=== PATIENT | female | born 1970 | race Caucasian/White ===

== ENCOUNTER 2018-09-13 15:27 | Outpatient (REF) | payer BC, SELFPAY ==
[2018-09-14 13:07] LABS: Chlamydia Result Negative; GC Result Negative; Specimen Description URINE
== END 2018-09-13 15:47 ==
LOC: LBN 15:27
PROVIDERS: PCP Nurse Practitioner Gerontology; Visit Provider Nurse Practitioner Family
DX: Z30.431 Encounter for routine checking of intrauterine contraceptive device (principal); Z11.3 Encounter for screening for infections with a predominantly sexual mode of transmission
CPT/HCPCS: 87491; 87591

== ENCOUNTER 2019-09-22 09:38 | Outpatient (CLI) | payer BC, SELFPAY ==
--- NOTE | 2019-09-22 08:30 | DI.RAD_ITS ---
EXAM: XR KNEE LT 4V AP,LAT,THOMAS,PAT CLINICAL HISTORY: left knee pain, fall from mtb. TECHNIQUE: 2D digital imaging was performed. COMPARISON: CR KNEES BILAT MERCHANT VIEW from 09/13/2008 CR LEFT KNEE LIMITED 1 OR 2 VIEWS from 09/13/2008 CR LEFT KNEE 3 VIEW COMPLETE from 08/03/2011 FINDINGS: Moderate degenerative changes are seen in the left knee with joint space narrowing and marginal osteo phytes. There are findings of a prior ACL repair. No acute fracture or dislocation. A small joint effusion is present. The soft tissues are unremarkable. IMPRESSION: Degenerative and postsurgical changes of the left knee. DATA REPOSITORY: RADIATION DOSE DELIVERED:
== END 2019-09-22 09:58 ==
PROVIDERS: PCP Nurse Practitioner; Referring Provider Nurse Practitioner; Visit Provider Physician Assistant Surgical
DX: M17.12 Unilateral primary osteoarthritis, left knee (principal); M25.762 Osteophyte, left knee
CPT/HCPCS: 73564

== ENCOUNTER 2019-10-27 16:01 | Outpatient (REF) | payer BC, SELFPAY ==
--- NOTE | 2019-10-27 15:50 | PAPFT_PTH ---
PATIENT: Lizabeth Cote LOC: [facility] U#:[id number] AGE/SX: 49/F ROOM: RE10/27/[address]: ELVIN Ovalles : 1970 BED: DIS: 10/27/2019 SPEC #: [id number] RECD: 10/27/19 18:13 STATUS: ANNA REQ #: [id number] CATHY: 10/27/19 15:[address]: Janet Barlow DEPT: [facility] Cytology RECD BY: So Stoddard ENTERED: 10/27/19 18:14 SP TYPE: PAPFT OTHR DR: Debra Carreon, PhD DATA SCIENCES DIRECTOR Tissues: 1 - CX/ENDOCX FOR PAP SMEARS Procedures: PAP THIN PREP/UVM Screening HPV DNA PROBE Comments: [id number]
== END 2019-10-27 16:21 ==
LOC: LBN 16:01
PROVIDERS: PCP Nurse Practitioner; Visit Provider Nurse Practitioner Family
DX: Z12.4 Encounter for screening for malignant neoplasm of cervix (principal); Z11.51 Encounter for screening for human papillomavirus (HPV)
CPT/HCPCS: 88142; 87624

== ENCOUNTER 2019-11-29 02:38 | Outpatient (CLI) | payer BC, SELFPAY ==
--- NOTE | 2019-11-29 17:00 | DI.MAMMO_ITS ---
EXAM: MAMMO SCREENING CLINICAL HISTORY: screening TECHNIQUE: Mammograms were interpreted according to the usual protocol including computer analysis w [employer] CAD system, tomosynthesis and C-view imaging. COMPARISON: 2012 through 2018 FINDINGS: The breasts are composed of heterogeneously dense fibroglandular densities, Breast Density category C . No suspicious masses or suspicious microcalcifications are seen. No skin thickening or abnormal axillary lymph nodes are seen. There has been no significant change from prior exams. IMPRESSION: BI-RADS Category 1, Negative mammogram. Yearly screening mammography is recommended. Breast Density Category C, heterogeneously Dense. The mammogram demonstrates the patient's breast tissue is dense. Dense breast tissue is very common a nd is not abnormal but dense breast tissue can make it harder to find cancer on a mammogram. Also, de nse breast tissue may increase breast cancer risk. This information about the result of the mammogram report was provided to the patient to raise their awareness. Use this report when you speak with the patient about their risks for breast cancer, which includes their family history. At that time, you may recommend additional screening tests (Ultrasound or MRI) as they might be useful based on their r isk. A negative radiographic report should not delay biopsy if a dominant or clinically suspicious mass is present. Up to ten percent of cancers are not identified on mammography. A negative report may reinforce clinical impression. Adenosis and dense breasts may obscure an underlying neoplasm. False positive reports average 6 to 10%.
== END 2019-11-29 02:58 ==
PROVIDERS: PCP Nurse Practitioner; Visit Provider Nurse Practitioner Family
DX: Z12.31 Encounter for screening mammogram for malignant neoplasm of breast (principal)
CPT/HCPCS: 77063; 77067

== ENCOUNTER 2021-01-14 08:34 | Outpatient (CLI) | payer BC, SELFPAY ==
--- NOTE | 2021-01-14 | DI.MAMMO_ITS ---
Exam(s) MAMMO SCREENING EXAM: MAMMO SCREENING CLINICAL HISTORY: SCREENING, Z12.39 TECHNIQUE: Mammograms were interpreted according to the usual protocol including computer analysis w [employer] CAD system, tomosynthesis and C-view imaging. COMPARISON: 2012 through 2019 FINDINGS: The breasts are composed of heterogeneously dense fibroglandular densities, Breast Density category C . No suspicious masses or suspicious microcalcifications are seen. No skin thickening or abnormal axillary lymph nodes are seen. There has been no significant change from prior exams. IMPRESSION: BI-RADS Category 1, Negative mammogram. Yearly screening mammography is recommended. Breast Density Category C, heterogeneously Dense. The mammogram demonstrates the patient's breast tissue is dense. Dense breast tissue is very common a nd is not abnormal but dense breast tissue can make it harder to find cancer on a mammogram. Also, de nse breast tissue may increase breast cancer risk. This information about the result of the mammogram report was provided to the patient to raise their awareness. Use this report when you speak with the patient about their risks for breast cancer, which includes their family history. At that time, you may recommend additional screening tests (Ultrasound or MRI) as they might be useful based on their r isk. A negative radiographic report should not delay biopsy if a dominant or clinically suspicious mass is present. Up to ten percent of cancers are not identified on mammography. A negative report may reinforce clinical impression. Adenosis and dense breasts may obscure an underlying neoplasm. False positive reports average 6 to 10%.
== END 2021-01-14 08:54 ==
PROVIDERS: PCP Nurse Practitioner; Visit Provider Nurse Practitioner Family
DX: Z12.31 Encounter for screening mammogram for malignant neoplasm of breast (principal)
CPT/HCPCS: 77063; 77067

== ENCOUNTER 2021-02-06 02:13 | Outpatient (CLI) | payer BC, SELFPAY ==
--- NOTE | 2021-02-06 09:00 | DI.RAD_ITS ---
Exam(s) XR ANKLE LT COMPLETE EXAM: XR ANKLE LT COMPLETE CLINICAL HISTORY: ACUTE ANKLE PAIN, ROLLED FOOT THIS SUMMER, M25.579. TECHNIQUE: 2D digital imaging was performed. COMPARISON: No exams were available for comparison FINDINGS: No evidence of fracture or widening of the mortise. Talar dome appears unremarkable. There appears to pes planus. Also inferior calcaneal spur measuring 3 millimeters. IMPRESSION: DATA REPOSITORY: RADIATION DOSE DELIVERED:
== END 2021-02-06 02:33 ==
PROVIDERS: PCP Nurse Practitioner; Visit Provider Nurse Practitioner
DX: M25.579 Pain in unspecified ankle and joints of unspecified foot (principal); M77.32 Calcaneal spur, left foot
CPT/HCPCS: 73610

== ENCOUNTER 2021-03-04 03:28 | Outpatient (CLI) | payer BC, SELFPAY ==
[2021-03-04 09:16] LABS: Hemoglobin A1C 5.1 % (<5.7)
[2021-03-04 10:00] LABS: Calculated LDL 93 mg/dL (<100); Cholesterol 190 mg/dL (<200); HDL Cholesterol 86 mg/dL (40-60); Triglyceride 58 mg/dL (<150)
== END 2021-03-04 03:29 | disposition home or self-care (01) ==
PROVIDERS: PCP Nurse Practitioner; Visit Provider Nurse Practitioner
DX: Z13.1 Encounter for screening for diabetes mellitus (principal); Z13.6 Encounter for screening for cardiovascular disorders
CPT/HCPCS: 36415; 80061; 83036

== ENCOUNTER 2021-11-12 14:49 | Observation (INO) | payer BC, SELFPAY ==
[2021-11-12] VITALS (14 sets, daily range): BP systolic 95–113; BP diastolic 46–69; PULSE 53–79; RESP 14–18; TEMP 35.8–37; TEMPC 36.6; O2SAT 95–100; BMI 23.1
--- NOTE | 2021-11-12 15:15 | DI.CT_ITS ---
Exam(s) CT ABDOMEN PELVIS W EXAM: CT ABDOMEN PELVIS W CLINICAL HISTORY: RLQ pain, cramps. TECHNIQUE: Imaging Protocol: Axial computed tomography images with coronal and sagittal reformatted images were created and reviewed CONTRAST MATERIAL: Intravenous: Omnipaque 100cc Oral: None COMPARISON: No exams were available for comparison FINDINGS: VISUALIZED LUNG BASES: No nodules nor pleural effusions evident. ABDOMEN: There is no ascites. LIVER: There are no focal hepatic lesions evident . GALLBLADDER/BILIARY: No obvious gallbladder pathology. CBD is not dilated. PANCREAS: No evidence of pancreatic mass nor dilatation of the pancreatic duct. SPLEEN: Spleen is not enlarged. No obvious intrasplenic lesions. Splenic and portal veins are paten t. ADRENALS: There are no significant adrenal masses. KIDNEYS:No focal renal masses. No cysts. No calculi. No hydronephrosis. There is a me entering pa tent 5-6 millimeter diameter vein which drains into the left renal hilum and drains dilated left para uterine veins, consistent with pelvic congestion syndrome. The left renal vein is pre aortic with no retroaortic component and there is no thrombosis of the left renal vein.. ABDOMINAL AORTA: Not enlarged. Not atherosclerotic. Aortoiliac segments are patent. LYMPH NODES:There is no retroperitoneal nor paraaortic adenopathy. ABDOMINAL WALL: No evidence of significant anterior abdominal wall nor inguinal hernia. GI: There is no evidence of bowel obstruction, free air, nor abscess. PELVIS: GI: There is a 5 millimeter calcification in the did tendon aspect of the cecum. The appendix is see n on the sagittal images as retrocecal and thickened to diameter of 13 millimeters and with wall thic kness 3 millimeters. Mild periappendiceal streaking noted. Consistent with appendicitis LYMPH NODES: There is no intrapelvic nor inguinal adenopathy. REPRODUCTIVE: IUD in satisfactory position in the anteverted uterus. No abnormal adnexal masses. Pr ominent left parauterine veins noted which drain into prominent gonadal vein on the left side. There is small amount of fluid in the cul-de-sac. URINARY BLADDER: Unremarkable OSSEOUS: No significant osseous lesions. No fractures. IMPRESSION: 1. The main acute finding is acute retrocecal appendicitis. No evidence of rupture at this time. No free air. There is a small amount of fluid in the [id number]-ew-xre-dependent aspect of the pelvis. 2. There is an IUD in satisfactory position in the endometrial canal. The uterus is anteverted. The re are no abnormal adnexal masses. 3. Enlarged left gonadal vein which drains slightly prominent left para ovarian-left parauterine vein s, consistent with element of pelvic congestion. Called by myself to ER physician RADIATION DOSE DELIVERED: 674.29mGy.cm Total DLP DATA REPOSITORY: All CT scans at this facility are submitted to the National Radiology Data Registry (NRDR) Dose Index Registry (DIR) with the [employer] (ACR). RADIATION OPTIMIZATION: All CT scans at this facility use at least one of these dose optimization te chniques: automated exposure control; mA and/or kV adjustment per patient size (includes targeted exa ms where dose is matched to clinical indication); or iterative reconstruction.
--- NOTE | 2021-11-12 15:19 | ED.GENADUL_ITS ---
Discharge Plan Disposition Patient Disposition: [facility] INPATIENT Condition: Improving Discharge Details Chief Complaint: Abd Prob Clinical Impression: Acute appendicitis Primary Care Provider: Debra Carreon ED Provider: Elie Gomez Home Meds and New Rx's Prescriptions: No Action levonorgestrel 19.5 mcg/24 hrs (5 yrs) 52 mg intrauterine device 1 device IY ONCE ascorbate calcium (vitamin C) 500 mg tablet 500 mg PO DAILY cholecalciferol (vitamin D3) 50 mcg (2,000 unit) capsule 50 mcg PO DAILY naproxen 500 mg tablet 500 mg PO BID Qty: 30 0RF Probiotic 1 EACH capsule 1 ea PO DAILY Medical Decision Making 51-year-old female with day 3 of the gradual onset of poor appetite, nausea, loose stool and the development of right lower quadrant pain. She has been chilled and nauseated. She arrives afebrile with blood pressure 113/56. Her exam does reveal tenderness in the abdomen, primarily right lower quadrant with mild rebound present. Differential diagnosis would include appendicitis. Patient IV access established, given fluid bolus and acetaminophen. Referred for laboratory testing and CT imaging. Patient has a white count of nearly 12. There is left shift present. She does have a slightly elevated bilirubin but LFTs are unremarkable. CT reveals acute retrocecal appendicitis. Please see the formal report. Patient seen in consultation by Dr. Barrera, antibiotics initiated and the patient will be admitted for operative management. HPI General Mode of arrival: ambulatory . Date/Time Provider Initiated Documentation: 11/12/21 14:58 . Limitations to Documentation: no limitations . Information obtained by: patient . History of Present Illness 51 year old F presents to the emergency department with the chief complaint of Abdominal cramps and right lower quadrant pain x2 days, described as moderate, Quality is described as dull and constant, and is localized to the abdomen and right. Patient reports radiation to back. Patient started experiencing this day(s) and it has been constant. Rest improves symptom(s), Movement worsens symptoms . Patient notes nausea/vomiting and other (Nausea, loose stool, no blood present. No emesis. Chills but no fever.). Related Data Home Medications Medication Instructions Recorded Confirmed Lactobacillus acidophilus 10 1 ea PO DAILY 05/18/16 11/12/21 billion cell capsule (Probiotic) levonorgestrel 20.1 mcg/24 hrs (6 1 device intrauterine ONCE 09/13/18 11/12/21 yrs) 52 mg intrauterine device naproxen 500 mg tablet 500 mg PO BID #30 tabs 12/06/18 11/12/21 ascorbate calcium (vitamin C) 500 500 mg PO DAILY 12/24/20 11/12/21 mg tablet cholecalciferol (vitamin D3) 50 50 mcg PO DAILY 12/24/20 11/12/21 mcg (2,000 unit) capsule Previous Rx's Medication Instructions Recorded naproxen 500 mg tablet 500 mg PO BID #30 tabs 12/06/18 Allergies Allergy/AdvReac Type Severity Reaction Status Date / Time Sulfa (Sulfonamide Allergy Severe ORAL Verified 11/12/21 14:58 Antibiotics) BLISTERS AND SORES General Stated Complaint: Abd Prob DANDRE: 3 Review of Systems Narrative: 8 systems were reviewed and otherwise negative. No URI symptoms, negative COVID at home. Immunized. PFSH All Active Problems (Updated 11/12/21 @ 18:30 by Elie Gomez MD) Acute appendicitis (Acute) IUD surveillance (Acute 02/18/15) Surgical History Repair, ACL (~2012) left Family History Mother No problems noted. 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[employer] Pets and animals: Yes Pets and animals: dog(s) Sexually active: Yes Do you think of yourself as: straight/heterosexual Current gender identity: female What is your relationship status?: How often do you talk on the phone with friends or family?: three or more times per week How often do you get together with friends or relatives?: three or more times per week How often do you attend [employer] or temple services?: 1-3 times per year Do you belong to any clubs or organized social groups?: yes Panel score (0-1 are the most socially isolated patients): 3 What type of physical activity do you participate in: walking, aerobic and running Duration: 15-30 minutes/day Frequency: 3-4 times per week Imelda/Mormon: No preference Special imelda needs: No Seatbelt use: always Helmet use: Yes Helmet use: sometimes Drive intox or ride w/intox milk wagon driver: No Do you feel safe at home: Yes Do you feel safe in your relationship?: Yes Female Reproductive History Menstrual control method: progestin IUCD (Lot # [id number] Exp Date 01/2021) History History 2 Para 2 Hx # Term Pregnancies Multiple births Hx # Pregnancies Ectopic pregnancies AB induced Hx Number of Living Children AB spontaneous Exam Narrative Exam Narrative: GEN: awake, alert, oriented 3. Pleasant, well groomed, interactive. HEAD: Normocephalic, atraumatic ENT: Mucous membranes moist, oropharynx unremarkable, External ear exam unremarkable EYES: PERRL, EOMI NECK: Full ROM, no ZEYNEP, no menigismus CHEST/RESP: Nontender, clear to auscultation bilateral, no wheeze/rhonchi/rales CARDIOVASCULAR: RRR, no murmur, rub gilberto. 2+ Rad pulse bilateral ABDOMEN: Soft, tender in the right lower quadrant with mild rebound present. Decreased/scant bowel sounds. EXT: Full ROM, no edema, no rash Neuro: Grossly normal neurologic exam, conversant, interactive. Psych: Speech fluent, thoughts congruent, affect normal GEN: awake, alert, oriented 3. Pleasant, well groomed, interactive. Course Vital Signs Vital signs: Vital Signs Temperature 37.0 C 11/12/21 14:51 Pulse 79 11/12/21 14:51 Respiratory Rate 16 11/12/21 14:51 Blood Pressure 113/56 L 11/12/21 14:51 Pulse Oximetry 98 11/12/21 14:51 Temperature 37.0 C 11/12/21 14:51 Temperature Source Temporal Artery Scan 11/12/21 14:51 Pulse 79 11/12/21 14:51 Respiratory Rate 16 11/12/21 14:51 Respiratory Effort Non-Labored 11/12/21 14:56 Blood Pressure 113/56 L 11/12/21 14:51 Blood Pressure Position Sitting 11/12/21 14:51 Pulse Oximetry 98 11/12/21 14:51 Oxygen Delivery Method Room Air 11/12/21 14:51 Oxygen Flow Rate 0 11/12/21 14:51 Pain Level 8 11/12/21 14:51 Lab/Test Results Lab/Test Results: POC- Test(urine) Negative PAWSS Have you Been Recently Intoxicated or Drunk Within the Last 30 days?: No Have you Ever Experienced Previous Episodes of Alcohol Withdrawal?: No Have you ever Experienced Withdrawal Seizures?: No Have you ever Experienced Delirium Tremens(DT)s?: No Have you ever undergone Alcohol Rehabilitation Treatment (i.e, inpt ot outpatient treatment programs)?: No Have you ever Experienced Blackouts?: No Have you ever Combined Alcohol with other Downers within the last 90 days?: No Have you ever Combined Alcohol with any other Substance of Abuse during the last 90 days?: No Positive Blood Alcohol level on Presentation? [PCS.BAL]: No Evidence of Increased Autonomic Activity (i.e. HR>120, tremor, sweating, agitation, nausea)?: No Result: 0
[2021-11-12 15:20] LABS: Bilirubin Negative (Negative); Blood Moderate (Negative); Clarity Sl Cloudy (Clear); Glucose Negative (Negative); Ketones Trace mg/dL (Negative); Leukocyte Esterase Moderate (Negative); Nitrite Negative (Negative); Specific Gravity 1.015 (1.005-1.025); Urobilinogen 0.2 EU/dL (Up TO 0.2)
[2021-11-12 15:25] LABS: Bacteria Moderate HPF (Negative); C & S Indicated? No/Sq. Contamination; Casts Negative LPF (Negative); Crystals Negative HPF (Negative); Epithelial Cells Many HPF (Negative); Mucus Negative (Negative); WBC 20-50 HPF (0-5)
[2021-11-12] MEDS: ACETAMINOPHEN 1,000 MG/100 ML BTL 400 MG IVPB (15:35)
[2021-11-12] MEDS: Normal Saline 1,000 ML 1000 ML IV (15:35)
[2021-11-12 15:41] LABS: Abs Immature Grans 0.03 10^3/uL (0.0-0.06); Absolute Basophil Count 0.04 10^3/uL (0.0-0.2); Absolute Eosinophil Count 0.05 10^3/uL (0.0-0.7); Absolute Lymphocyte Count 1.09 10^3/uL (1.2-3.4); Absolute Monocyte Count 0.73 10^3/uL (0.1-0.8); Absolute Neutrophil Count 10.03 10^3/uL (1.2-6.7); Basophils % 0.3; Eosinophils % 0.4; HCT 36.4 % (36.0-46.0); HGB 12.3 g/dL (11.2-15.7); Immature Grans % 0.3; Lymphocytes % 9.1; MCH 32.2 pg (27.0-33.0); MCHC 33.8 % (32.0-36.0); MCV 95 fL (80-95); MPV 10.5 fL (8.0-11.0); Monocytes % 6.1; Neutrophils % 83.8; Platelet Count 191 10^3/uL (130-400); RBC 3.82 10^6/uL (3.93-5.22); RDW 12.4 % (11.7-14.6); RDW-SD 43.5 fL; WBC 11.97 10^3/uL (4.4-10.8)
[2021-11-12 16:07] LABS: ALT 17 U/L (14-59); AST 13 U/L (15-37); Albumin 3.6 g/dL (3.4-5.0); Alkaline Phosphatase 76 U/L (46-116); Anion Gap 7.9 mmol/L (3-11); BUN 9 mg/dL (7-18); Bilirubin, Total 2.7 mg/dL (0.2-1.0); CO2 27.1 mmol/L (21.0-32.0); CREATININE 0.7 mg/dL (0.55-1.02); Calcium 8.2 mg/dL (8.5-10.1); Chloride 102 mmol/L (98-107); Estimated GFR 105.95 (mL/min/1.73m2); Glucose 101 mg/dL (74-106); Lipase 57 U/L (73-393); Magnesium 1.8 mg/dL (1.8-2.4); Potassium 3.5 mmol/L (3.5-5.1); Sodium 137 mmol/L (136-145); Total Protein 7.1 g/dL (6.4-8.2)
[2021-11-12] MEDS: Omnipaque 350 MG/ML 100 ML BTL IV (16:26)
[2021-11-12] MEDS: Normal Saline Flush 10 ML SYR IVP (16:26)
[2021-11-12 18:19] LABS: Source Nasal/Nares
--- NOTE | 2021-11-12 18:38 | W.PM.HP.N ---
Date of service: 11/12/21 Time of Service: 18:39 Assessment and Plan Assessment and plan (1) Acute appendicitis: Status: Acute Assessment and plan: Lizabeth is a pleasant 51 year old female with acute appendicitis. Her appendix is retrocecal. Discussed the surgical procedure,complications and postoperative coarse. Patient would like to proceed with surgery. She will recieve one dose on antibiotics prior to surgery. Risks, benefits and complications have been reviewed. Complications include but are not limited to bleeding, infection, injury to adjacent bowel, abscess formation, staple line leak, inability to do the procedure laparoscopically and adverse reaction to the medications. Questions were entertained and answered to their satisfaction and they wished to proceed. No guarantees were given or implied. Admission overnight. Hopefully home tomorrow Laparoscopic Appendectomy History of Present Illness Consults Consult date: 11/12/21 Requesting physician: Elie Gomez Narrative: Mrs Cote is a pleasant 51 year old female who started to feel ill on Wednesday. On wednesday she had some generalized abdominal pain but powered through. Today she went to work but had to leave early because the pain was getting worse. The pain is in the Right lower quadrant. Work-up in the ER revealed a slight increase in her WBC count as well as her T. Bili. LFTs were normal. CT scan was reviewed and showed an appendicolith and a dilated retrocecal appendix. Radologists interpretation: FINDINGS: VISUALIZED LUNG BASES: No nodules nor pleural effusions evident.? ABDOMEN: There is no ascites. LIVER: There are no focal hepatic lesions evident .? GALLBLADDER/BILIARY: No obvious gallbladder pathology.? CBD is not dilated. PANCREAS: No evidence of pancreatic mass nor dilatation of the pancreatic duct.? SPLEEN: Spleen is not enlarged.? No obvious intrasplenic lesions.? Splenic and portal veins are patent. ADRENALS: There are no significant adrenal masses. KIDNEYS:No focal renal masses.? No cysts.? No calculi.? No hydronephrosis.? There is a me entering patent 5-6 millimeter diameter vein which drains into the left renal hilum and drains dilated left parauterine veins, consistent with pelvic congestion syndrome.? The left renal vein is pre aortic with no retroaortic component and there is no thrombosis of the left renal vein.. ABDOMINAL AORTA: Not enlarged.? Not atherosclerotic.? Aortoiliac segments are patent. LYMPH NODES:There is no retroperitoneal nor paraaortic adenopathy. ABDOMINAL WALL: No evidence of significant anterior abdominal wall nor inguinal hernia. GI: There is no evidence of bowel obstruction, free air, nor abscess. PELVIS:? GI: There is a 5 millimeter calcification in the did tendon aspect of the cecum.? The appendix is seen on the sagittal images as retrocecal and thickened to diameter of 13 millimeters and with wall thickness 3 millimeters.? Mild periappendiceal streaking noted.? Consistent with appendicitis LYMPH NODES: There is no intrapelvic nor inguinal adenopathy. REPRODUCTIVE: IUD in satisfactory position in the anteverted uterus.? No abnormal adnexal masses.? Prominent left parauterine veins noted which drain into prominent gonadal vein on the left side.? There is small amount of fluid in the cul-de-sac. URINARY BLADDER: Unremarkable OSSEOUS: No significant osseous lesions. No fractures. IMPRESSION: 1. The main acute finding is acute retrocecal appendicitis.? No evidence of rupture at this time.? No free air.? There is a small amount of fluid in the chg-xv-ell-dependent aspect of the pelvis. 2. There is an IUD in satisfactory position in the endometrial canal.? The uterus is anteverted.? There are no abnormal adnexal masses. 3. Enlarged left gonadal vein which drains slightly prominent left para ovarian-left parauterine veins, consistent with element of pelvic congestion. Review of Systems Constitutional Constitutional: Denies fatigue, Denies fever(s), Denies headache(s), Denies night sweats, Denies weakness and Denies weight loss Eyes Eyes: Denies change in vision ENT Ears, Nose, Mouth, and Throat: Denies change in voice, Denies dysphagia, Denies headache(s) and Denies hoarseness Cardiovascular Cardiovascular: Denies chest pain, Denies chest pain at rest, Denies irregular heart rhythm, Denies palpitations, Denies dyspnea and Denies dyspnea on exertion Respiratory Respiratory: Denies cough, Denies dyspnea and Denies dyspnea on exertion Gastrointestinal Gastrointestinal: Reports as per HPI and Denies dysphagia Genitourinary Genitourinary: Reports system reviewed and no additional complaints, except as documented Musculoskeletal Musculoskeletal: Reports system reviewed and no additional complaints, except as documented Integumentary/Breasts Skin/Breast: Reports system reviewed and no additional complaints, except as documented Neurologic Neurologic: Denies headache(s) and Denies weakness Psychiatric Psychiatric: Reports system reviewed and no additional complaints, except as documented Endocrine Endocrine: Denies fatigue and Denies palpitations PFSH All Active Problems Acute appendicitis (Acute) IUD surveillance (Acute 02/18/15) Surgical History Repair, ACL (~2012) left Family History Mother No problems noted. 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 Pets and animals: Yes Pets and animals: dog(s) Sexually active: Yes Do you think of yourself as: straight/heterosexual Current gender identity: female What is your relationship status?: How often do you talk on the phone with friends or family?: three or more times per week How often do you get together with friends or relatives?: three or more times per week How often do you attend rastafarian or jehovah's witness services?: 1-3 times per year Do you belong to any clubs or organized social groups?: yes Panel score (0-1 are the most socially isolated patients): 3 What type of physical activity do you participate in: walking, aerobic and running Duration: 15-30 minutes/day Frequency: 3-4 times per week Imelda/Yarsanism: No preference Special imelda needs: No Seatbelt use: always Helmet use: Yes Helmet use: sometimes Drive intox or ride w/intox chain saw driver: No Do you feel safe at home: Yes Do you feel safe in your relationship?: Yes Female Reproductive History Menstrual control method: progestin IUCD (Lot # [id number] Exp Date 01/2021) History History 2 Para 2 Hx # Term Pregnancies Multiple births Hx # Pregnancies Ectopic pregnancies AB induced Hx Number of Living Children AB spontaneous Meds Allergies and Home Medications Allergies Allergy/AdvReac Type Severity Reaction Status Date / Time Sulfa (Sulfonamide Allergy Severe ORAL Verified 11/12/21 14:58 Antibiotics) BLISTERS AND SORES Home Medications Medication Instructions Recorded Confirmed Type Lactobacillus acidophilus 10 1 ea PO DAILY 05/18/16 11/12/21 History billion cell capsule (Probiotic) levonorgestrel 20.1 mcg/24 hrs (6 1 device intrauterine ONCE 09/13/18 11/12/21 History yrs) 52 mg intrauterine device naproxen 500 mg tablet 500 mg PO BID #30 tabs 12/06/18 11/12/21 Rx ascorbate calcium (vitamin C) 500 500 mg PO DAILY 12/24/20 11/12/21 History mg tablet cholecalciferol (vitamin D3) 50 50 mcg PO DAILY 12/24/20 11/12/21 History mcg (2,000 unit) capsule Exam Const General: cooperative, comfortable and no acute distress Orientation: alert and oriented x3 HENMT Head: normocephalic and atraumatic Resp Effort & Inspection: normal respiratory effort Auscultation: clear to auscultation bilaterally Cardio Rate: regular rate Rhythm: regular rhythm Heart Sounds: no gallops, no murmurs and no rubs GI Inspection: normal to inspection Palpation: soft, no hepatosplenomegaly and tender in the RLQ and at McBurney's point; with no rebound tenderness Results Imaging Abdomen CT scan report/results: report reviewed and image reviewed Labs Result diagrams: 11/12/21 15:30 11/12/21 15:30 Labs: Laboratory Results - last 24 hr 11/12/21 11/12/21 11/12/21 15:08 15:30 15:30 WBC 11.97 H RBC 3.82 L Hgb 12.3 Hct 36.4 MCV 95 MCH 32.2 MCHC 33.8 RDW 12.4 Plt Count 191 MPV 10.5 Immature Gran % 0.3 Neutrophils % 83.8 Lymphocytes % 9.1 Monocytes % 6.1 Eosinophils % 0.4 Basophils % 0.3 Nucleated RBC % 0.0 Absolute Neutrophils 10.03 H Absolute Lymphocytes 1.09 L Absolute Monocytes 0.73 Absolute Eosinophils 0.05 Absolute Basophils 0.04 Sodium 137 Potassium 3.5 Chloride 102 Carbon Dioxide 27.1 Anion Gap 7.9 BUN 9 Creatinine 0.7 Est GFR (CKD-EPI 2020) 105.95 Glucose 101 Calcium 8.2 L Magnesium 1.8 Total Bilirubin 2.7 H AST 13 L ALT 17 Alkaline Phosphatase 76 Total Protein 7.1 Albumin 3.6 Lipase 57 Urine Color Yellow Urine Clarity Sl Cloudy Urine pH 7.0 Ur Specific [place] 1.015 Urine Protein Negative Urine Ketones Trace H Urine Blood Moderate H Urine Nitrite Negative Urine Bilirubin Negative Urine Urobilinogen 0.2 Ur Leukocyte Esterase Moderate H Urine RBC 5-10 H Urine WBC 20-50 H Ur Epithelial Cells Many Urine Crystals Negative Urine Bacteria Moderate Urine Casts Negative Urine Mucus Negative Ur Culture Indicated? No/Sq. Contamination Urine Glucose Negative COVID-19 Source 11/12/21 11/12/21 15:31 18:15 WBC RBC Hgb Hct MCV MCH MCHC RDW Plt Count MPV Immature Gran % Neutrophils % Lymphocytes % Monocytes % Eosinophils % Basophils % Nucleated RBC % Absolute Neutrophils Absolute Lymphocytes Absolute Monocytes Absolute Eosinophils Absolute Basophils Sodium Potassium Chloride Carbon Dioxide Anion Gap BUN Creatinine Est GFR (CKD-EPI 2020) Glucose Calcium Magnesium Total Bilirubin AST ALT Alkaline Phosphatase Total Protein Albumin Lipase Urine Color Cancelled Urine Clarity Cancelled Urine pH Cancelled Ur Specific [place] Cancelled Urine Protein Cancelled Urine Ketones Cancelled Urine Blood Cancelled Urine Nitrite Cancelled Urine Bilirubin Cancelled Urine Urobilinogen Cancelled Ur Leukocyte Esterase Cancelled Urine RBC Urine WBC Ur Epithelial Cells Urine Crystals Urine Bacteria Urine Casts Urine Mucus Ur Culture Indicated? Urine Glucose Cancelled COVID-19 Source Nasal/Nares Last Vital Signs Temp 98.6 F 11/12/21 17:43 Pulse 70 11/12/21 17:43 Resp 16 11/12/21 14:51 BP 95/46 L 11/12/21 17:43 Pulse Ox 98 11/12/21 17:43 PAWSS Have you Been Recently Intoxicated or Drunk Within the Last 30 days?: No Have you Ever Experienced Previous Episodes of Alcohol Withdrawal?: No Have you ever Experienced Withdrawal Seizures?: No Have you ever Experienced Delirium Tremens(DT)s?: No Have you ever undergone Alcohol Rehabilitation Treatment (i.e, inpt ot outpatient treatment programs)?: No Have you ever Experienced Blackouts?: No Have you ever Combined Alcohol with other Downers within the last 90 days?: No Have you ever Combined Alcohol with any other Substance of Abuse during the last 90 days?: No Positive Blood Alcohol level on Presentation? [PCS.BAL]: No Evidence of Increased Autonomic Activity (i.e. HR>120, tremor, sweating, agitation, nausea)?: No Result: 0
[2021-11-12] MEDS: PIPERACILLIN/TAZO 3.375 GM in Normal Saline 50 ML IVPB (18:48)
[2021-11-12] MEDS: Normal Saline 1,000 ML 150 ML IV (18:49)
[2021-11-12 19:02] LABS: COVID-19 PCR Negative (Negative)
--- NOTE | 2021-11-12 19:30 | ROE_ITS ---
Date of service: 11/12/21 Time of Service: 20:54 Operative Note Operative Note DATE OF PROCEDURE: 11/12/21 PRE-OP DIAGNOSIS: acute appendicitis POST-OP DIAGNOSIS: same PROCEDURE: laparoscopic appendectomy SURGEON: Rita Barrera ANESTHESIA TYPE: General LMA/ETT Refer to Anesthesia Record ESTIMATED BLOOD LOSS: 25 PATHOLOGY: other (appendix) COMPLICATIONS: None Patient was transported to: PACU Patient's condition: stable Indications: Lizabeth is a pleasant 51 year old female with acute appendicitis. Her appendix is retrocecal. Discussed the surgical procedure,complications and postoperative coarse.? Patient would like to proceed with surgery.? She will recieve one dose on antibiotics prior to surgery. Risks, benefits and complications have been reviewed. Complications include but are not limited to bleeding, infection, injury to adjacent bowel, abscess formation, staple line leak, inability to do the procedure laparoscopically and adverse reaction to the medications. Questions were entertained and answered to their satisfaction and they wished to proceed. No guarantees were given or implied. Findings: Inflammed appendix. No evidence of rupture Procedure Description: After informed consent was obtained the patient was taken to the operating room placed in the supine position, SCDs were applied as well as monitors. A timeout was done. The patient was then placed under general anesthesia and intubated without any difficulty. At this point the abdomen was prepped and draped in a sterile surgical fashion with chlorhexidine. A second timeout was done and the patient's name, date of , operation to be performed, DVT proph ylaxis, antibiotic given, and fire risk was assessed. 0.25% Bupivocaine was injected into the dermis just above the umbilicus. A small 5 mm incision was made with an 11 blade. The skin was grasped with penetrating towel clamps on either side of the incision and then using a Visiport a 5 mm port was placed under direct visualization into the abdomen. The abdomen was insufflated. Local anesthetic was then injected just above the pubic symphysis in the midline. A small 5 mm incision was made with an 11 blade and another 5 mm port was placed under direct visualization into the abdomen. The local anesthetic was then injected in the left lower quadrant area and a 12 mm incision was made with an 11 blade. A 12 mm port was then placed under direct visualization. The patient's bed was then turned to the left and head down allowing me to sweep of the small bowel out of the right lower quadrant. The cecum was gently grasped and the appendix was identified. The appendix looked inflammed and thickened at the tip. No purulent fluid was noted. The appendix was grasped at the neck and pulled up slightly allowing me to visualize the junction with the cecum. Using the laparoscopic LigaSure the mesoappendix was slowly transected. Using a laparoscopic straight stapler the appendix was then transected at the junction with the cecum. The appendix was placed into an Endo Catch bag and removed through the 12 mm port site. The port was placed back into the abdomen and the staple line was identified. No bleeding was noted. The transected mesentery was identified and no bleeding was noted. The 2 5 mm ports were then removed under direct visualization and no bleeding was noted from the fascia. The insufflation was stopped and the 12 mm port was removed. The 12 mm port site fascia was closed with a 0 Vicryl [id number] suture. The skin was then closed with 4-0 Vicryl. The skin was cleaned and dried and skin affix was applied. The patient was woken up, extubated and taken back to recovery room in stable condition. There were no immediate complications. Sponge, instrument and needle counts were correct at the end of the case x2.
--- NOTE | 2021-11-12 20:20 | APP_PTH ---
PATIENT: Lizabeth Cote LOC: U#:[id number] AGE/SX: 51/F ROOM: RE11/12/[address]: Rita Barrera MD : 1970 BED: A DIS: 11/13/2021 SPEC #: [id number] RECD: 11/13/21 12:12 STATUS: ANNA REQ #: [id number] CATHY: 11/12/21 20:[address]: Rita Barrera DEPT: Surgical Specimen RECD BY: So Stoddard ENTERED: 11/13/21 12:13 SP TYPE: Appendix OTHR DR: Debra Carreon, PhD BEEF GRINDER Tissues: 1 - APPENDIX NOT INCIDENTAL Procedures: GROSS AND MICRO LEVEL 3 Comments: [id number]
--- NOTE | 2021-11-12 20:23 | ANES.PREOP_ITS ---
General Info Date of Service Date Performed: 11/12/21 Height: 5 ft 6 in Weight: 64.864 kg Body Mass Index (BMI): 23.1 Surgical Procedure: Operation Date: 11/12/21 19:30 Proposed Procedure Side Surgeon p Appendectomy Laparoscopic Rita Barrera MD Actual Procedure Side Surgeon p Appendectomy Laparoscopic Not Applicable Rita Barrera MD Pre-Op Diagnosis Post-Op Diagnosis acute appendicitis acute appendicitis Meds Allergies and Home Medications Allergies Allergy/AdvReac Type Severity Reaction Status Date / Time Sulfa (Sulfonamide Allergy Severe ORAL Verified 11/12/21 14:58 Antibiotics) BLISTERS AND SORES Home Medication Medication Instructions Recorded Lactobacillus acidophilus 10 1 ea PO DAILY 05/18/16 billion cell capsule (Probiotic) levonorgestrel 20.1 mcg/24 hrs (6 1 device intrauterine ONCE 09/13/18 yrs) 52 mg intrauterine device naproxen 500 mg tablet 500 mg PO BID #30 tabs 12/06/18 ascorbate calcium (vitamin C) 500 500 mg PO DAILY 12/24/20 mg tablet cholecalciferol (vitamin D3) 50 50 mcg PO DAILY 12/24/20 mcg (2,000 unit) capsule Current Visit Medications: Current Medications Generic Name Dose Route Start Last Admin Trade Name Freq PRN Reason Stop Dose Admin Acetaminophen 650 mg 11/12/21 19:12 Acetaminophen 325 Mg Tab PO Q4H PRN PRN Pain Al Hydrox/Mg Hydrox/Simethicone 30 ml 11/12/21 19:12 Mylanta Suspension 30 Ml Cup PO Q4H PRN PRN Sodium Chloride 500 mls @ 0 mls/hr 11/12/21 15:17 Saline 500ml Bag IV PRN PRN As Directed IV Miscellaneous Supplies 1 each 11/12/21 15:30 Iv Access IV DIRECTED DEVIKA Ibuprofen 600 mg 11/12/21 19:13 Ibuprofen 600 Mg Tab PO QID PRN PRN Iohexol 100 ml 11/12/21 16:30 11/12/21 16:26 Omnipaque 350 Mg/Ml 100 Ml Btl IV 12/12/21 23:59 100 ml DIRECTED DEVIKA Administration Morphine Sulfate 2 mg 11/12/21 19:10 Morphine 2 Mg/Ml Syr IVP Q1H PRN PRN Ondansetron HCl 4 mg 11/12/21 19:10 Ondansetron 4 Mg/2 Ml Vial IVP Q4H PRN PRN Simethicone 80 mg 11/12/21 19:12 Simethicone 80 Mg Chew PO Q4H PRN PRN Sodium Chloride 0 ml 11/12/21 15:17 11/12/21 16:26 Normal Saline Flush 10 Ml Syr IVP 10 ml PRN PRN Administration Sodium Chloride 250 ml 11/12/21 16:30 11/12/21 16:26 Normal Saline 250 Ml Bag IV 65 ml DIRECTED DEVIKA Administration Tramadol HCl 50 mg 11/12/21 19:12 Tramadol 50 Mg Tab PO Q6H PRN PRN Pain Trazodone HCl 100 mg 11/12/21 19:12 Trazodone 100 Mg Tab PO HS PRN PRN Sleep PFSH Active Problems Active Problems: Problem Status Onset Code Acute appendicitis K35.80 IUD surveillance 02/18/15 Z30.431 Surgical History Surgical History Repair, ACL (~2012) left Tobacco Smoking/Tobacco Use Status: Never Second hand exposure: Yes Alcohol Alcohol Intake: current Alcohol intake frequency: a few times a month Alcohol type: hard liquor Substance Use Substance use: Never Substance use type: does not use Prental History History 2 Para 2 Hx # Term Pregnancies Multiple births Hx # Pregnancies Ectopic pregnancies AB induced Hx Number of Living Children AB spontaneous Vital Signs and Lab Results Vital Signs Most Recent Vital Signs in EMR: Most Recent Vital Signs Temp Pulse Resp BP Pulse Ox 37.0 C 70 16 95/46 L 98 11/12/21 17:43 11/12/21 17:43 11/12/21 14:51 11/12/21 17:43 11/12/21 17:43 Point of Care Results Point of Care Results: POC- Test(urine) Negative 11/12/21 15:07 Lab Results Result Diagrams: 11/12/21 15:30 11/12/21 15:30 Blood Type / Crossmatch: No Data to Display Complete Blood Count: White Blood Count 11.97 10^3/uL (4.4-10.8) H 11/12/21 15:30 Red Blood Count 3.82 10^6/uL (3.93-5.22) L 11/12/21 15:30 Hemoglobin 12.3 g/dL (11.2-15.7) 11/12/21 15:30 Hematocrit 36.4 % (36.0-46.0) 11/12/21 15:30 Platelet Count 191 10^3/uL (130-400) 11/12/21 15:30 Complete Metabolic Panel: Sodium Level 137 mmol/L (136-145) 11/12/21 15:30 Potassium Level 3.5 mmol/L (3.5-5.1) 11/12/21 15:30 Chloride Level 102 mmol/L (98-107) 11/12/21 15:30 Carbon Dioxide Level 27.1 mmol/L (21.0-32.0) 11/12/21 15:30 Blood Urea Nitrogen 9 mg/dL (7-18) 11/12/21 15:30 Creatinine 0.7 mg/dL (0.55-1.02) 11/12/21 15:30 Magnesium Level 1.8 mg/dL (1.8-2.4) 11/12/21 15:30 Calcium Level 8.2 mg/dL (8.5-10.1) L 11/12/21 15:30 Albumin 3.6 g/dL (3.4-5.0) 11/12/21 15:30 Glucose Level 101 mg/dL (74-106) 11/12/21 15:30 Liver Function Panel: Alanine Aminotransferase (ALT/SGPT) 17 U/L (14-59) 11/12/21 15: 30 Aspartate Amino Transf (AST/SGOT) 13 U/L (15-37) L 11/12/21 15: 30 Coagulation Panel: No Data to Display Cardiac Panel: No Data to Display Arterial Blood Gas: No Data to Display Venous Blood Gas: No Data to Display Pancreas Panel: Lipase 57 U/L (73-393) 11/12/21 15:30 Thyroid Panel: No Data to Display Infectious Disease: Coronavirus (COVID-19)(PCR) Negative (Negative) 11/12/21 18:15 Coronavirus 2019 Source Nasal/Nares 11/12/21 18:15 Blood Cultures: No Data to Display Toxicology Panel: No Data to Display Panel: No Data to Display Anesthesia Assessment and Plan Anesthesia History Personal History: No History of Anesthesia Complications Family History: No Family History of Anesthesia Complications Exercise Tolerance Exercise Tolerance: Metabolic Equivalents>4 Pertinent Negatives Pertinent Negatives: No Symptoms of GERD, No Major Cardiovascular Symptoms or Complaints, No Major Pulmonary Symptoms or Complaints and No History of CVA/TIA Cardiac & Pulmonary Exam Cardiac Exam: Normal S1/S2 Heart Sounds Pulmonary Exam: Clear Bilateral Breath Sounds Implantable Cardiac Device Does patient have a Pacemaker or an ICD?: No Airway Exam Known Difficult Airway: No Mallampati Class: 1 Mouth Opening: Normal (> 3cm) Thyromental Distance: Greater than 3 cm Neck Range of Motion: Full ROM Neck Circumference: Normal Teeth Condition: Normal Dentition ASA Classification ASA Score: ASA 2 Emergency Case?: No NPO Status NPO Status: NPO Clears >2 hours, Solids >8 hours Status Status: Negative HCG Anesthesia Plan Resuscitation Status: Full Code Anesthesia Technique: General Anesthesia Airway Planned: Endotracheal Tube Monitors Used: Standard Monitors
[2021-11-12] MEDS: Bupivacaine 0.25% Pres-Free 30 ML VIAL (20:35)
--- NOTE | 2021-11-12 21:07 | W.ANESPOSTOP ---
Postoperative Evaluation Date, Time and Location Date Performed: 11/12/21 Time Performed: 09:08 Patient Location: PACU Vital Signs Most Recent Imported Vital Signs: Most Recent Vital Signs Temp Pulse Resp BP Pulse Ox 36.6 C 60 16 109/68 98 11/12/21 20:48 11/12/21 20:53 11/12/21 20:53 11/12/21 20:53 11/12/21 20:53 Most Recent Manually Entered Vital Signs: Adult Blood Pressure: 105/61 Heart Rate: 53 Respirations: 18 Oxygen Saturation (%): 100 Temperature (C): 36.6 C Pain Score (0-10 Scale): 0 Pain Score Most Recent Pain Score: Most Recent Pain Score Pain Level 0 11/12/21 20:53 Assessment Mental Status: Awake (Alert & Oriented to Patient Baseline) Airway and Respiratory Function: Patent airway with normal (patient baseline) respiratory exam Cardiovascular Function: Hemodynamically Stable Hydration Status: Adequately Hydrated Nausea & Vomiting: No Nausea or Vomiting Pain: Pt. Denies Any Pain Peripheral Nerve Block: Patient did not receive a nerve block
[2021-11-13 00:23] VITALS: BP 99/59; PULSE 66; RESP 14; TEMP 36.9; O2SAT 98
[2021-11-13 01:17] VITALS: BP 98/60; PULSE 65; RESP 14; TEMP 36.2; O2SAT 98
[2021-11-13 05:28] VITALS: BP 99/58; PULSE 57; RESP 14; TEMP 36.3; O2SAT 96
[2021-11-13] MEDS: Acetaminophen 325 MG TAB 650 MG PO (05:31)
[2021-11-13] MEDS: traMADol 50 MG TAB PO (05:31)
[2021-11-13] MEDS: Ibuprofen 600 MG TAB PO (06:30)
--- NOTE | 2021-11-13 07:19 | DSE_ITS ---
Date of service: 11/13/21 Time of Service: 07:20 DS: Diagnosis Discharge Diagnosis (1) Acute appendicitis: Status: Acute Asessment and Plan: s/p laparoscopic appendectomy follow up in our office 10-14 days Discharge Plan Disposition Patient Disposition: HOME Condition: Improving Discharge Details Reason For Visit: acute appendicitis Admit Date/Time: 11/12/21 21:29 Admit Provider: Rita Barrera Attending Provider: Rita Barrera Primary Care Provider: Debra Carreon [facility] Hospital Course: Lizabeth is a 51-year-old woman who presented to the emergency department with right lower quadrant pain. She underwent a CAT scan of the abdomen and pelvis that demonstrated acute appendicitis. She was brought to the operating room and underwent uncomplicated laparoscopic appendectomy. Home Meds and New Rx's Prescriptions: New oxycodone 5 mg tablet 5 mg PO BID PRNQty: 10 0RF Continued levonorgestrel 19.5 mcg/24 hrs (5 yrs) 52 mg intrauterine device 1 device IY ONCE ascorbate calcium (vitamin C) 500 mg tablet 500 mg PO DAILY cholecalciferol (vitamin D3) 50 mcg (2,000 unit) capsule 50 mcg PO DAILY naproxen 500 mg tablet 500 mg PO BID Qty: 30 0RF Probiotic 1 EACH capsule 1 ea PO DAILY Discharge Instructions Instructions: Laparoscopic Appendectomy (DC) Additional Instructions: 1. Resume all of your medications. 2. Okay to use tylenol and ibuprofen over the counter as needed. 3. Use oxycodone as needed for pain. 4. Leave bandage in place for 24 hours, then remove. 5. Shower with warm soapy water. Pat dry. Use a bandaid if needed to protect your clothing. 6. No soaking or tub baths until I see you in the office. 7. No heavy lifting until I see you in the office. 8.Call the office (or go directly to the emergency room after hours) if you notice any of the following: Develop chills (warm to touch), or if you have a thermometer and your temperature is above 101 Difficulty breathing or difficultly swallowing Persistent vomiting Any bleeding ? exceeding one tablespoon 6. Call your physician if the site where your intravenous was started becomes red, swollen, painful, and warm to touch. Referrals: Rita Barrera MD [ [facility] STAFF PHYSICIAN] - Activity:: no lifting more than 10 l Equipment/Supplies:: No Equipment Needed Diet:: As Tolerated Discharge Orders Discharge Orders: Discharge Order (Routine); Ordered 11/13/21 Ordered By: Oskar Calixto DS: Summary Time Spent with Patient providing and/or coordinating discharge services: Less than 30 minutes Status at Discharge Functional status at discharge: independent ambulation Overall status at discharge: patient is back to baseline Mental Status: mental status grossly normal Speech and Movement: speech and movement normal Mood: congruent mood Affect: normal affect Exam Const General: cooperative, healthy appearing and comfortable Orientation: awake and oriented x3 Eyes General: appearance normal, both eyes and all related structures Conjunctivae: conjunctivae normal Sclera: sclerae normal Resp Effort & Inspection: normal respiratory effort and able to speak in complete sentences Cardio Jugular venous pressure: no JVD Rate: regular rate GI Inspection: non-distended Palpation: soft, no guarding, no hernias and nontender Auscultation: normal bowel sounds Other: Wounds are clean, abdomen is nondistended. Skin General skin exam: normal turgor Neuro General: patient alert, patient awake and patient oriented x3 Cognition: normal cognition Extrem Right lower extremity: no edema Left lower extremity: no edema Psych Mental Status: mental status grossly normal Speech and Movement: speech and movement normal Mood: congruent mood Affect: normal affect DS: Data Vitals/I&O Vitals and I&O: Vital Signs Temperature 97.3 F L 11/13/21 05:28 Temperature Source Tympanic 11/13/21 05:28 Pulse 57 L 11/13/21 05:28 Pulse Rhythm Regular 11/13/21 04:37 Respiratory Rate 14 11/13/21 05:28 Respiratory Effort Non-Labored 11/13/21 04:37 Respiratory Depth Normal 11/13/21 04:37 Respiratory Pattern Normal 11/13/21 04:37 Blood Pressure 99/58 L 11/13/21 05:28 Blood Pressure Position Sitting 11/12/21 14:51 Pulse Oximetry 96 11/13/21 05:28 Respiratory End-tidal CO2 34 11/12/21 21:13 Oxygen Delivery Method Room Air 11/13/21 01:17 Oxygen Flow Rate 0 11/13/21 01:17 Pain Level 5 11/13/21 06:31 Intake & Output 11/12/21 11/12/21 11/13/21 11:59 23:59 11:59 Intake Total 2380 / 2380 Output Total 0 / 0 1400 / 1400 Balance 2380 / 2380 -1400 / -1400 Weight 143 lb Intake: IV 2350 / 2350 Oral Output: Urine 1400 / 1400 Emesis 0 / 0 Other: Urine Color Yellow Urine Appearance Clear Urine Odor Normal Emesis Description None Voiding Methods Toilet Data Completed and Pending Labs on day of discharge: Labs from last 24 hours 11/12/21 11/12/21 11/12/21 18:15 15:31 15:30 WBC 11.97 H RBC 3.82 L Hgb 12.3 Hct 36.4 MCV 95 MCH 32.2 MCHC 33.8 RDW 12.4 Plt Count 191 MPV 10.5 Immature Gran % 0.3 Neutrophils % 83.8 Lymphocytes % 9.1 Monocytes % 6.1 Eosinophils % 0.4 Basophils % 0.3 Nucleated RBC % 0.0 Absolute Neutrophils 10.03 H Absolute Lymphocytes 1.09 L Absolute Monocytes 0.73 Absolute Eosinophils 0.05 Absolute Basophils 0.04 Sodium Potassium Chloride Carbon Dioxide Anion Gap BUN Creatinine Est GFR (CKD-EPI 2020) Glucose Calcium Magnesium Total Bilirubin AST ALT Alkaline Phosphatase Total Protein Albumin Lipase Urine Color Cancelled Urine Clarity Cancelled Urine pH Cancelled Ur Specific [place] Cancelled Urine Protein Cancelled Urine Ketones Cancelled Urine Blood Cancelled Urine Nitrite Cancelled Urine Bilirubin Cancelled Urine Urobilinogen Cancelled Ur Leukocyte Esterase Cancelled Urine RBC Urine WBC Ur Epithelial Cells Urine Crystals Urine Bacteria Urine Casts Urine Mucus Ur Culture Indicated? Urine Glucose Cancelled COVID-19 Source Nasal/Nares SARS-CoV-2 (PCR) Negative 11/12/21 11/12/21 15:30 15:08 WBC RBC Hgb Hct MCV MCH MCHC RDW Plt Count MPV Immature Gran % Neutrophils % Lymphocytes % Monocytes % Eosinophils % Basophils % Nucleated RBC % Absolute Neutrophils Absolute Lymphocytes Absolute Monocytes Absolute Eosinophils Absolute Basophils Sodium 137 Potassium 3.5 Chloride 102 Carbon Dioxide 27.1 Anion Gap 7.9 BUN 9 Creatinine 0.7 Est GFR (CKD-EPI 2020) 105.95 Glucose 101 Calcium 8.2 L Magnesium 1.8 Total Bilirubin 2.7 H AST 13 L ALT 17 Alkaline Phosphatase 76 Total Protein 7.1 Albumin 3.6 Lipase 57 Urine Color Yellow Urine Clarity Sl Cloudy Urine pH 7.0 Ur Specific [place] 1.015 Urine Protein Negative Urine Ketones Trace H Urine Blood Moderate H Urine Nitrite Negative Urine Bilirubin Negative Urine Urobilinogen 0.2 Ur Leukocyte Esterase Moderate H Urine RBC 5-10 H Urine WBC 20-50 H Ur Epithelial Cells Many Urine Crystals Negative Urine Bacteria Moderate Urine Casts Negative Urine Mucus Negative Ur Culture Indicated? No/Sq. Contamination Urine Glucose Negative COVID-19 Source SARS-CoV-2 (PCR) PFSH All Active Problems Acute appendicitis (Acute) IUD surveillance (Acute 02/18/15) Surgical History Repair, ACL (~2012) left Family History Mother No problems noted. 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[employer] Pets and animals: Yes Pets and animals: dog(s) Sexually active: Yes Do you think of yourself as: straight/heterosexual Current gender identity: female What is your relationship status?: How often do you talk on the phone with friends or family?: three or more times per week How often do you get together with friends or relatives?: three or more times per week How often do you attend presybeterian or quaker services?: 1-3 times per year Do you belong to any clubs or organized social groups?: yes Panel score (0-1 are the most socially isolated patients): 3 What type of physical activity do you participate in: walking, aerobic and running Duration: 15-30 minutes/day Frequency: 3-4 times per week Imelda/Shinto: No preference Special imelda needs: No Seatbelt use: always Helmet use: Yes Helmet use: sometimes Drive intox or ride w/intox local delivery driver: No Do you feel safe at home: Yes Do you feel safe in your relationship?: Yes Female Reproductive History Menstrual control method: progestin IUCD (Lot # [id number] Exp Date 01/2021) History History 2 Para 2 Hx # Term Pregnancies Multiple births Hx # Pregnancies Ectopic pregnancies AB induced Hx Number of Living Children AB spontaneous
[2021-11-13 08:02] VITALS: BP 110/51; PULSE 51; RESP 18; TEMP 36; O2SAT 100
--- NOTE | 2021-11-13 08:45 | CMDISCH_ITS ---
- If Service Date Differs Date of service: 11/13/21 Time of Service: 08:45 LACE Index Scoring Tool - Questions: Length of Stay (in days): 1 Acuity (Admit via E.D.?): Yes E.D. Visits: 1 - Answers: Total Score: 5 Risk of Readmission: Low Risk Care Management Discharge Reason for Hospitalization: Acute Appendicitis Discharge Plan: Lizabeth is discharged home via private vehicle with family. New RX is transmitted to [facility]. Pt will follow up with the Surgical Office on 11/25/21, as scheduled and follow up with community providers and discharge plan of care as prescribed. There is no anticipated need for [facility] services at the time of Lizabeth's discharge. Patient/Family Education Needs: Review discharge instructions, limitations, medications and plan to follow up with Surgical Office. Review ask me three.
== END 2021-11-13 08:36 | disposition home or self-care (01) ==
LOC: ER 19:38 → DSU 19:53 → MS 21:45 → DSU 11-13 11:31 → ER 11-13 11:31 → MS 11-13 11:31
PROVIDERS: Admitting Provider Surgery; Emergency Provider Emergency Medicine; PCP Nurse Practitioner; Visit Provider Surgery
PROC: 0DTJ4ZZ Resection of Appendix, Percutaneous Endoscopic Approach (ICD-10-PCS; CPT 44970; principal; 2021-11-12 19:30)
DX: K35.80 Unspecified acute appendicitis (principal); Z20.822 Contact with and (suspected) exposure to COVID-19
CPT/HCPCS: 44970; 36415; 80053; 81025; 83690; 87635; 96361; 96365; 96367; 99285; 74177; 81003; 81015; 83735; 85025; 88304; 99284; G0378; J0131; J1100; J1200; J1885; J2250; J2405; J2543; J3490

== ENCOUNTER 2021-11-18 19:15 | Emergency (ER) | payer BC, SELFPAY ==
[2021-11-18 19:24] VITALS: BP 110/71; PULSE 68; RESP 18; TEMP 36.9; O2SAT 100
--- NOTE | 2021-11-18 19:37 | ED.GENADUL_ITS ---
Discharge Plan Disposition Patient Disposition: HOME Condition: Stable Discharge Details Clinical Impression: Surgical aftercare, skin or subcutaneous tissue, S/P laparoscopic appendectomy Primary Care Provider: Debra Carreon ED Provider: Sheri Pugh Home Meds and New Rx's Prescriptions: Continued levonorgestrel 19.5 mcg/24 hrs (5 yrs) 52 mg intrauterine device 1 device IY ONCE ascorbate calcium (vitamin C) 500 mg tablet 500 mg PO DAILY cholecalciferol (vitamin D3) 50 mcg (2,000 unit) capsule 50 mcg PO DAILY Probiotic 1 EACH capsule 1 ea PO DAILY oxycodone 5 mg tablet 5 mg PO BID PRNQty: 10 0RF Discharge Instructions Instructions: Acute Wound Care (ED), Skin Adhesive Care (ED) Additional Instructions: Keep the area clean and dry. You can wash the area with soap and water and then pat dry. You can apply bacitracin ointment to the area twice daily. Follow-up with your scheduled appointment with general surgery for re-evaluation as planned. Return immediately to the emergency department if you develop any worsening or new concerning symptoms such as fever, persistent vomiting, worsening redness, swelling or pain or any other concerns. Referrals: Oskar Calixto MD [ [facility] STAFF PHYSICIAN] - Discharge Data Discharge Physician: Sheri Pugh Medical Decision Making 51-year-old female who is 1 week status post laparoscopic cholecystectomy presents for a concern for infection at her surgical site that developed today. Vitals within normal limits. Patient appears comfortable and nontoxic. Her supraumbilical surgical incisional site notes Dermabond overlying wound with minimal surrounding erythema and a small area of induration underneath. There is no significant cellulitis or yellow drainage. There is no fluctuance. The remainder of her abdomen is soft and nontender. Her left lower quadrant incisional site appears to be healing well without signs of cellulitis. As patient has had no fever, eating and drinking normally without abdominal pain, do not feel indication for labs or imaging. An image of her supraumbilical wound was obtained with patient's permission and reviewed with Dr. Mccarty. These findings are expected postsurgical and likely secondary to the suture underneath the skin. Advised to keep area clean and dry, and can apply bacitracin twice daily. Advised to follow-up with surgery as directed. Usual and customary return precautions given prior to discharge. HPI General Mode of arrival: ambulatory . Date/Time Provider Initiated Documentation: 11/18/21 19:18 . Limitations to Documentation: no limitations . Information obtained by: patient . HPI Narrative: Patient is a 51-year-old female who is 1 week status post laparoscopic appendectomy who presents for concern for infection at the periumbilical incision site. Patient states she has been doing fine until today when she noticed redness, hardness and clear drainage at her umbilical site. She states she noted some chills today but denies any fever, vomiting, abdominal pain or change in bowel habits. She states she has been having more regular bowel movements now but still small and soft. Related Data Home Medications Medication Instructions Recorded Confirmed Lactobacillus acidophilus 10 1 ea PO DAILY 05/18/16 11/18/21 billion cell capsule (Probiotic) levonorgestrel 20.1 mcg/24 hrs (6 1 device intrauterine ONCE 09/13/18 11/18/21 yrs) 52 mg intrauterine device ascorbate calcium (vitamin C) 500 500 mg PO DAILY 12/24/20 11/18/21 mg tablet cholecalciferol (vitamin D3) 50 50 mcg PO DAILY 12/24/20 11/18/21 mcg (2,000 unit) capsule oxycodone 5 mg tablet 5 mg PO BID PRN #10 tabs 11/13/21 Previous Rx's Medication Instructions Recorded oxycodone 5 mg tablet 5 mg PO BID PRN #10 tabs 11/13/21 Allergies Allergy/AdvReac Type Severity Reaction Status Date / Time Sulfa (Sulfonamide Allergy Severe ORAL Verified 11/18/21 19:27 Antibiotics) BLISTERS AND SORES General Stated Complaint: Cellulitis DANDRE: 4 Review of Systems All systems reviewed & are unremarkable except as noted in HPI and below Constitutional Constitutional: Reports as per HPI, Denies chills and Denies fever(s) Eyes Eyes: Denies blurry vision ENT Ears, Nose, Mouth, and Throat: Denies dizziness, Denies sore throat and Denies throat swelling Cardiovascular Cardiovascular: Denies chest pain and Denies dyspnea Respiratory Respiratory: Denies cough and Denies dyspnea Gastrointestinal Gastrointestinal: Denies abdominal pain, Denies diarrhea and Denies vomiting Genitourinary Genitourinary: Denies hematuria and Denies dysuria Musculoskeletal Musculoskeletal: Denies back pain and Denies numbness Integumentary/Breasts Skin/Breast: Denies lesions and Denies rash Neurologic Neurologic: Denies dizziness, Denies localized weakness and Denies numbness Allergic/Immunologic Allergic/Immunologic: Denies throat swelling PFSH All Active Problems (Updated 11/18/21 @ 19:55 by Sheri Pugh DO) Surgical aftercare, skin or subcutaneous tissue (Acute) S/P laparoscopic appendectomy (Acute) IUD surveillance (Acute 02/18/15) Medical History (Updated 11/18/21 @ 19:55 by Sheri Pugh DO) No significant past medical history Surgical History (Updated 11/18/21 @ 19:55 by Sheri Pugh DO) History of appendectomy Repair, ACL (~2012) left Family History Mother No problems noted. 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[employer] Pets and animals: Yes Pets and animals: dog(s) Sexually active: Yes Do you think of yourself as: straight/heterosexual Current gender identity: female What is your relationship status?: How often do you talk on the phone with friends or family?: three or more times per week How often do you get together with friends or relatives?: three or more times per week How often do you attend advent or jainism services?: 1-3 times per year Do you belong to any clubs or organized social groups?: yes Panel score (0-1 are the most socially isolated patients): 3 What type of physical activity do you participate in: walking, aerobic and running Duration: 15-30 minutes/day Frequency: 3-4 times per week Imelda/Yazdanism: No preference Special imelda needs: No Seatbelt use: always Helmet use: Yes Helmet use: sometimes Drive intox or ride w/intox motorcoach driver: No Do you feel safe at home: Yes Do you feel safe in your relationship?: Yes Female Reproductive History Menstrual control method: progestin IUCD (Lot # [id number] Exp Date 01/2021) History History 2 Para 2 Hx # Term Pregnancies Multiple births Hx # Pregnancies Ectopic pregnancies AB induced Hx Number of Living Children AB spontaneous Exam Const General: cooperative, healthy appearing and no acute distress Orientation: alert, awake and oriented x3 HENMT Head: normal to inspection Mouth: oral mucosae normal Eyes General: appearance normal, both eyes and all related structures Neck Neck: normal visual inspection Resp Effort & Inspection: normal respiratory effort and able to speak in complete sentences Cardio Rate: regular rate GI Palpation: soft and nontender Abdomen image: 1. 2 cm supraumbilical surgical incision with Dermabond overlying wound and minimal surrounding erythema and approximate 1.5 x 1.5 cm area of induration pal pated below the area. There is no fluctuance or drainage. Skin General skin exam: no rashes or lesions noted Neuro General: patient alert, patient awake and patient oriented x3 Motor: muscle tone normal throughout Extrem General: normal to inspection and full ROM Psych Appearance: grossly normal Affect: normal affect Course Vital Signs Vital signs: Vital Signs Temperature 98.5 F 11/18/21 19:24 Pulse 68 11/18/21 19:24 Respiratory Rate 18 11/18/21 19:24 Blood Pressure 110/71 11/18/21 19:24 Pulse Oximetry 100 11/18/21 19:24 Temperature 98.5 F 11/18/21 19:24 Temperature Source Oral 11/18/21 19:24 Pulse 68 11/18/21 19:24 Respiratory Rate 18 11/18/21 19:24 Respiratory Effort Short of Breath 11/18/21 19:28 Blood Pressure 110/71 11/18/21 19:24 Pulse Oximetry 100 11/18/21 19:24 Pain Level 7 11/18/21 19:24
== END 2021-11-18 20:15 | disposition home or self-care (01) ==
PROVIDERS: Emergency Provider Physician Assistant; PCP Nurse Practitioner
DX: Z90.49 Acquired absence of other specified parts of digestive tract; Y83.8 Other surgical procedures as the cause of abnormal reaction of the patient, or of later complication, without mention of misadventure at the time of the procedure; L76.82 Other postprocedural complications of skin and subcutaneous tissue; L53.9 Erythematous condition, unspecified
CPT/HCPCS: 99281

== ENCOUNTER 2022-01-19 06:51 | Day surgery (SDC) | payer BC, SELFPAY ==
--- NOTE | 2022-01-18 18:03 | W.PM.DSUDISC ---
Date of service: 01/19/22 Time of Service: 08:34 Discharge Plan Disposition Patient Disposition: HOME Condition: Good Condition: Good Discharge Details Reason For Visit: screening colonoscopy Attending Provider: Oskar Calixto Primary Care Provider: Mari Elias Home Meds and New Rx's Prescriptions: Continued levonorgestrel 19.5 mcg/24 hrs (5 yrs) 52 mg intrauterine device 1 device IY ONCE ascorbate calcium (vitamin C) 500 mg tablet 500 mg PO DAILY cholecalciferol (vitamin D3) 50 mcg (2,000 unit) capsule 50 mcg PO DAILY Probiotic 1 EACH capsule 1 ea PO DAILY Discontinued bisacodyl [Dulcolax (bisacodyl)] 5 mg tablet,delayed release (DR/EC) 5 mg PO ONCE Qty: 4 0RF Rx Instructions: Take according to provider's instructions for colonoscopy prep. polyethylene glycol 3350 17 gram/dose powder 17 g PO ONCE Qty: 238 0RF Rx Instructions: To be taken as directed by prescriber's office for colonoscopy prep. Discharge Instructions Additional Instructions: 1. If tolerated, consume a soft, low fiber diet for 1-2 days. [address] Do not drive, drink alcohol, operate machinery, make critical decisions, or do activities that require coordination or balance for 24 hours. 3. Because air was put into your colon during the procedure, expelling air from your rectum (passing gas or farting) is normal. 4. You may not have a bowel movement for 1-3 days because of the colonoscopy prep. This is normal. 5. Go directly to the emergency room if you notice any of the following: Develop chills (warm to touch), or if you have a thermometer and your temperature is above 101 Difficulty breathing or difficultly swallowing Persistent vomiting Severe abdominal pain, other than gas cramps Severe chest pain Black, tarry stools Any bleeding ? exceeding one tablespoon 6. Call your physician if the site where your intravenous was started becomes red, swollen, painful, and warm to touch. 7. Your physician has reviewed your pre-procedure medications. Please continue to take those medications as previously ordered. You will be given specific information/education regarding any changes to your medications before leaving. Activity:: Activity as Tolerated Activity:: Activity as Tolerated Diet:: As Tolerated DS: Diagnosis Discharge Diagnosis (1) Screening for colon cancer: Status: Acute Asessment and Plan: This was a normal colonoscopy, you can follow-up with your next one in 10 years unless you have any symptoms
--- NOTE | 2022-01-18 18:04 | W.COLOREPORT ---
Date of service: 01/19/22 Time of Service: 08:32 Colonoscopy Report Date of procedure: 01/19/22 Pre-op diagnosis general: screening colonoscopy Post-op diagnosis procedure note: same Procedure: Screening colonoscopy Surgeon: Oskar Calixto Anesthesia Type: General:No Airway Estimated blood loss (mL): 0 Pathology: none sent Complications: None Disposition: same day Indications: Lizabeth is a 51-year-old woman here for her first screening colonoscopy Prep: Miralax/Dulcolax Procedure Start Time: 08:06 Procedure End Time: 08:23 Retraction Time: 13 Findings: Normal colonoscopy Procedure Description: After the induction of monitored anesthetic care, and with the patient in left lateral decubitus position, I began by performing an external anorectal exam.? Perineum and skin were normal, as was the anal verge.? There was no evidence of external hemorrhoids.? Next, I performed a digital rectal exam.? I did not appreciate any abnormal findings.? Next, I advanced a colonoscope into the rectal vault.? I performed retroflexion.? Using insufflation, I then advanced the colonoscope beyond the rectal folds and into the sigmoid colon before advancing towards the cecum.? The quality of the prep was excellent.? The scope was noted to be in the cecum by identification of the ileocecal valve and appendiceal orifice.? I then began withdrawing the colonoscope using repeated irrigation as necessary for full evaluation of the colonic mucosa. ?Once the scope was withdrawn to the level of the rectum, great care was taken to examine portions of the rectal folds.? Finally, the scope was withdrawn and the patient was brought to the same-day surgery recovery unit as the anesthetic wore off. ?The findings and instructions were shared with the patient prior to discharge.
[2022-01-19 07:00] VITALS: BP 99/60; PULSE 72; RESP 18; TEMP 36.4; O2SAT 100
[2022-01-19] MEDS: Lactated Ringers 1,000 ML 80 ML IV (07:26)
--- NOTE | 2022-01-19 07:54 | W.ANESPRE ---
General Info Date of Service Date Performed: 01/19/22 Height: 5 ft 6 in Weight: 62.3 kg Body Mass Index (BMI): 22.1 Surgical Procedure: Operation Date: 01/19/22 08:20 Proposed Procedure Side Surgeon karl Calixto MD Meds Allergies and Home Medications Allergies Allergy/AdvReac Type Severity Reaction Status Date / Time Sulfa (Sulfonamide Allergy Severe ORAL Verified 01/19/22 07:04 Antibiotics) BLISTERS AND SORES Home Medication Medication Instructions Recorded Lactobacillus acidophilus 10 1 ea PO DAILY 05/18/16 billion cell capsule (Probiotic) levonorgestrel 20.1 mcg/24 hrs (6 1 device intrauterine ONCE 09/13/18 yrs) 52 mg intrauterine device ascorbate calcium (vitamin C) 500 500 mg PO DAILY 12/24/20 mg tablet cholecalciferol (vitamin D3) 50 50 mcg PO DAILY 12/24/20 mcg (2,000 unit) capsule Current Visit Medications: Current Medications Generic Name Dose Route Start Last Admin Trade Name Freq PRN Reason Stop Dose Admin Hyoscyamine Sulfate 0.125 mg 01/18/22 18:02 Hyoscyamine 0.125 Mg Sl/Oral/Chew SL DIRECTED PRN Ringer's Solution 1,000 mls @ 80 mls/hr 01/19/22 06:00 01/19/22 07:26 IV 01/28/22 23:59 80 mls/hr INFUSION DEVIKA Administration IV Miscellaneous Supplies 1 each 01/19/22 06:00 Iv Access IV 01/28/22 23:59 DIRECTED DEVIKA Ondansetron HCl 4 mg 01/18/22 18:02 Ondansetron 4 Mg/2 Ml Vial IVP Q4H PRN PRN Nausea / Vomiting Sodium Chloride 0 ml 01/19/22 06:00 Normal Saline Flush 10 Ml Syr IV 01/28/22 23:59 PRN PRN Sodium Chloride 0 ml 01/19/22 06:00 Normal Saline 10 Ml Vial IJ 01/28/22 23:59 DIRECTED PRN Sterile Water 0 ml 01/19/22 06:00 Water,Injection,Sterile 10 Ml Vial IJ 01/28/22 23:59 DIRECTED PRN PFSH Active Problems Active Problems: Problem Status Onset Code IUD surveillance 02/18/15 Z30.431 Medical History Medical History No significant past medical history Surgical History Surgical History Repair, ACL (~2012) left S/P laparoscopic appendectomy (~11/12/21) Tobacco Smoking/Tobacco Use Status: Never Second hand exposure: Yes Alcohol Alcohol Intake: current Alcohol intake frequency: a few times a month Alcohol type: hard liquor Substance Use Substance use: Never Substance use type: does not use Prental History History 2 Para 2 Hx # Term Pregnancies Multiple births Hx # Pregnancies Ectopic pregnancies AB induced Hx Number of Living Children AB spontaneous Vital Signs and Lab Results Vital Signs Most Recent Vital Signs in EMR: Most Recent Vital Signs Temp Pulse Resp BP Pulse Ox 36.4 C L 72 18 99/60 L 100 01/19/22 07:00 01/19/22 07:00 01/19/22 07:00 01/19/22 07:00 01/19/22 07:00 Point of Care Results Point of Care Results: POC- Test(urine) Negative 01/19/22 07:25 Lab Results Blood Type / Crossmatch: No Data to Display Complete Blood Count: No Data to Display Complete Metabolic Panel: No Data to Display Liver Function Panel: No Data to Display Coagulation Panel: No Data to Display Cardiac Panel: No Data to Display Arterial Blood Gas: No Data to Display Venous Blood Gas: No Data to Display Pancreas Panel: No Data to Display Thyroid Panel: No Data to Display Infectious Disease: No Data to Display Blood Cultures: No Data to Display Toxicology Panel: No Data to Display Panel: No Data to Display Anesthesia Assessment and Plan Anesthesia History Personal History: No History of Anesthesia Complications and Delayed Emergence Family History: No Family History of Anesthesia Complications Exercise Tolerance Exercise Tolerance: Metabolic Equivalents>4 Pertinent Negatives Pertinent Negatives: No Symptoms of GERD, No Major Cardiovascular Symptoms or Complaints, No Major Pulmonary Symptoms or Complaints and No History of CVA/TIA Cardiac & Pulmonary Exam Cardiac Exam: Normal S1/S2 Heart Sounds Pulmonary Exam: Clear Bilateral Breath Sounds Implantable Cardiac Device Does patient have a Pacemaker or an ICD?: No Airway Exam Known Difficult Airway: No Mallampati Class: 1 Mouth Opening: Normal (> 3cm) Thyromental Distance: Greater than 3 cm Neck Range of Motion: Full ROM Neck Circumference: Normal Teeth Condition: Normal Dentition ASA Classification ASA Score: ASA 2 Emergency Case?: No NPO Status NPO Status: NPO Clears >2 hours, Solids >8 hours Status Status: Negative HCG Anesthesia Plan Resuscitation Status: Full Code Anesthesia Technique: General Anesthesia Airway Planned: Natural Airway Monitors Used: Standard Monitors
[2022-01-19 07:58] VITALS: BMI 22.1
[2022-01-19 08:28] VITALS: BP 97/64; PULSE 79; RESP 18; TEMP 36.6; O2SAT 99
--- NOTE | 2022-01-19 08:47 | W.ANESPOSTOP ---
Postoperative Evaluation Date, Time and Location Date Performed: 01/19/22 Time Performed: 08:32 Patient Location: Day Surgery Unit Vital Signs Most Recent Imported Vital Signs: Most Recent Vital Signs Temp Pulse Resp BP Pulse Ox 36.6 C 79 18 97/64 L 99 01/19/22 08:28 01/19/22 08:28 01/19/22 08:28 01/19/22 08:28 01/19/22 08:28 Pain Score Most Recent Pain Score: Most Recent Pain Score Pain Level 1 01/19/22 08:28 Assessment Mental Status: Awake (Alert & Oriented to Patient Baseline) Airway and Respiratory Function: Patent airway with normal (patient baseline) respiratory exam Cardiovascular Function: Hemodynamically Stable Hydration Status: Adequately Hydrated Nausea & Vomiting: No Nausea or Vomiting Pain: Pain is tolerable per patient Peripheral Nerve Block: Patient did not receive a nerve block
[2022-01-19 08:55] VITALS: PULSE 60; RESP 18; TEMP 36.5; O2SAT 100
== END 2022-01-19 09:12 | disposition home or self-care (01) ==
PROVIDERS: PCP Nurse Practitioner Family; Visit Provider Surgery
PROC: 0DJD8ZZ Inspection of Lower Intestinal Tract, Via Natural or Artificial Opening Endoscopic (ICD-10-PCS; CPT 45378; principal; 2022-01-19 08:15)
DX: Z12.11 Encounter for screening for malignant neoplasm of colon (principal)
CPT/HCPCS: 45378; 81025; J2405

== ENCOUNTER → 2022-02-02 03:12 | Outpatient (CLI) | payer BC, SELFPAY ==
--- NOTE | 2022-02-02 06:45 | DI.MAMMO_ITS ---
Exam(s) MAMMO SCREENING EXAM: MAMMO SCREENING CLINICAL HISTORY: screening,z12.39 TECHNIQUE: Mammograms were interpreted according to the usual protocol including computer analysis w SENSIMED CAD system, tomosynthesis and C-view imaging. COMPARISON: 2012 through 2020 FINDINGS: The breasts are composed of heterogeneously dense fibroglandular densities, Breast Density category C . No suspicious masses or suspicious microcalcifications are seen. No skin thickening or abnormal axillary lymph nodes are seen. There has been no significant change from prior exams. IMPRESSION: BI-RADS Category 1, Negative mammogram. Yearly screening mammography is recommended. Breast Density Category C, heterogeneously Dense. The mammogram demonstrates the patient's breast tissue is dense. Dense breast tissue is very common a nd is not abnormal but dense breast tissue can make it harder to find cancer on a mammogram. Also, de nse breast tissue may increase breast cancer risk. This information about the result of the mammogram report was provided to the patient to raise their awareness. Use this report when you speak with the patient about their risks for breast cancer, which includes their family history. At that time, you may recommend additional screening tests (Ultrasound or MRI) as they might be useful based on their r isk. A negative radiographic report should not delay biopsy if a dominant or clinically suspicious mass is present. Up to ten percent of cancers are not identified on mammography. A negative report may reinforce clinical impression. Adenosis and dense breasts may obscure an underlying neoplasm. False positive reports average 6 to 10%.
== END ==
PROVIDERS: PCP Nurse Practitioner Family; Visit Provider Nurse Practitioner Women's Health
DX: Z12.31 Encounter for screening mammogram for malignant neoplasm of breast (principal)
CPT/HCPCS: 77063; 77067

== ENCOUNTER → 2023-02-04 02:16 | Outpatient (CLI) | payer BC, SELFPAY ==
[2023-02-04] MEDS: Normal Saline Flush 10 ML SYR IVP (14:21)
[2023-02-04] MEDS: Gadoterate meglumine 20 ML VIAL 13 ML IVP (14:21)
--- NOTE | 2023-02-04 14:45 | DI.MRI_ITS ---
Exam(s) MR BRAIN WO/W EXAM: MR BRAIN WO/W CLINICAL HISTORY: Left side facial numbness with progression,facial tingling,r20.2. TECHNIQUE: Multiplanar multisequence MRI of the brain was performed. CONTRAST MATERIAL: IV Contrast: 13 ML of Dotarem contrast administered. COMPARISON: No exams were available for comparison FINDINGS: VENTRICLES AND EXTRA AXIAL SPACES: Normal in size and morphology for the patient's age. HEMORRHAGE: None. CEREBRAL PARENCHYMA: No focus of restricted diffusion to suggest acute infarct. No space-occupying le tiffany identified. MIDLINE SHIFT: None. BRAINSTEM/CEREBELLUM: Normal. CALVARIUM: Normal. ENHANCEMENT: No suspicious enhancement identified. VISUALIZED PARANASAL SINUSES/MASTOIDS: Clear. Orbits: Unremarkable. Pituitary: Normal. Vasculature: Normal flow voids. IMPRESSION: Unremarkable MRI of the brain. DATA REPOSITORY:
== END ==
PROVIDERS: PCP Nurse Practitioner Family; Visit Provider Nurse Practitioner Family
DX: R20.2 Paresthesia of skin (principal)
CPT/HCPCS: 70553

== ENCOUNTER 2023-05-27 05:12 | Outpatient (CLI) | payer BC, SELFPAY ==
[2023-05-27 10:50] LABS: HCT 33.9 % (36.0-46.0); HGB 11.2 g/dL (11.2-15.7); MCH 32.7 pg (27.0-33.0); MCV 99 fL (80-95); MPV 10.1 fL (8.0-11.0); Platelet Count 245 10^3/uL (130-400); RBC 3.42 10^6/uL (3.93-5.22); RDW 13.5 % (11.7-14.6); RDW-SD 49.2 fL; WBC 4.32 10^3/uL (4.4-10.8)
[2023-05-27 11:05] LABS: Hemoglobin A1C 5.3 % (<5.7)
[2023-05-27 11:13] LABS: Anion Gap 10.2 mmol/L (3-11); BUN 8 mg/dL (7-18); CO2 26.8 mmol/L (21.0-32.0); CREATININE 0.7 mg/dL (0.55-1.02); Calcium 8.3 mg/dL (8.5-10.1); Calculated LDL 82 mg/dL (<100); Chloride 105 mmol/L (98-107); Cholesterol 185 mg/dL (<200); Glucose 99 mg/dL (74-106); HDL Cholesterol 97 mg/dL (40-60); Sodium 142 mmol/L (136-145); Triglyceride 34 mg/dL (<150)
== END 2023-05-27 05:13 | disposition home or self-care (01) ==
PROVIDERS: PCP Nurse Practitioner Family; Visit Provider Nurse Practitioner Family
DX: Z00.00 Encounter for general adult medical examination without abnormal findings (principal)
CPT/HCPCS: 36415; 80048; 80061; 85027; 83036; 84443

== ENCOUNTER 2024-05-04 16:53 | Emergency (ER) | payer OTHER, SELFPAY ==
--- NOTE | 2024-05-04 16:45 | DI.RAD_ITS ---
Exam(s) XR ANKLE LT COMPLETE EXAM: XR ANKLE LT COMPLETE CLINICAL HISTORY: ankle pain after twisting injury TECHNIQUE: 2D digital imaging was performed. Three views. COMPARISON: No exams were available for comparison FINDINGS: Exam is limited by overlying sock. BONES: No acute fracture is present. No bony destructive lesion is seen. Small plantar calcaneal sp ur. JOINTS:The ankle mortise is normally aligned. SOFT TISSUE: Swelling. IMPRESSION: No evidence of fracture. Soft tissue swelling. DATA REPOSITORY: RADIATION DOSE DELIVERED:
[2024-05-04 16:56] VITALS: BP 127/82; PULSE 60; RESP 18; TEMP 36.4; O2SAT 98
--- NOTE | 2024-05-04 18:15 | ED.GENADUL_ITS ---
Discharge Plan Disposition Patient Disposition: Home Discharge Details Clinical Impression: Sprain of ankle, left Primary Care Provider: Mari Elias ED Provider: Dea Pace Home Meds and New Rx's Prescriptions: No Action levonorgestrel 19.5 mcg/24 hrs (5 yrs) 52 mg intrauterine device 1 device IY ONCE ascorbate calcium (vitamin C) 500 mg tablet 500 mg PO DAILY cholecalciferol (vitamin D3) 50 mcg (2,000 unit) capsule 50 mcg PO DAILY ondansetron HCl 4 mg tablet 4 mg PO Q8H PRN (Reason: nausea and vomiting) Qty: 60 0RF prochlorperazine maleate 5 mg tablet See Rx Instructions PO TID PRN (Reason: headache and/or nausea) Qty: 30 3RF Rx Instructions: 5-10 mg orally three times a day PRN; Probiotic 1 EACH capsule 1 ea PO DAILY Discharge Instructions Instructions: Ankle Sprain ED Additional Instructions: Please call your primary care provider do not significantly better in the next week or two. Physical therapy referral may be helpful to regain strength in your ankle Use ice for 15 to 20 minutes at a time every hour or so. However [employer] recommended use the Kin bandage for compression/support. Tylenol or ibuprofen use for discomfort as needed. Do gentle range of motion exercises to your ankle as tolerated Return to emergency care if you develop new color change to the foot, numbness to foot, severe ankle pain, or if you are very worried to be rechecked again immediately Referrals: Mari Elias, LYNDON [Primary Care Provider] - HPI General Date/Time Provider Initiated Documentation: 05/04/24 16:58 . HPI Narrative: Lizabeth is a 53year old female who presents to the emergency department today for evaluation of left ankle pain. She reports that she was walking down the stairs last night while texting and missed a step, causing her to twist her left ankle. She felt a crack. She has been using ice and an Kin bandage on it, has been able to walk throughout the day without difficulty. Denies other injuries such as head injury, back pain, hip pain, knee pain. Denies distal numbness/tingling. She has twisted her ankle in the past, but no fractures. Denies significant relevant past medical history Physical exam reassuring. Moderate swelling to the lateral malleolus, no point tenderness with palpation. Full ROM of ankle. No overlying abrasions, lacerations, or skin tears. No tenderness with palpation to left knee or left lower leg. Distal pulses intact, brisk cap refill. Toe able to wiggle without difficulty D/dx includes but is not limited to: Fracture, sprain, other soft tissue/ligamentous injury. No red flags concerning for neurovascular compromise or dislocation. I independently interpreted the following tests: Left ankle x-ray, no acute fracture noted. This was confirmed by radiologist History and presentation consistent with sprained ankle. As Lizabeth's been able to ambulate with Kin bandage without difficulty, recommended continued use of Kin bandage, RICE, and f/u with PCP as needed. Reviewed discharge instructions with patient, including symptomatic management and red flags indicating need for return to emergency care Related Data Home Medications ?Medication ?Instructions ?Recorded ?Confirmed Lactobacillus acidophilus 10 1 ea PO DAILY 05/18/16 05/04/24 billion cell capsule (Probiotic) levonorgestrel 20.4 mcg/24 hr (up 1 device intrauterine ONCE 09/13/18 05/04/24 to 8 yrs) 52 mg intrauterine device ascorbate calcium (vitamin C) 500 500 mg PO DAILY 12/24/20 05/04/24 mg tablet cholecalciferol (vitamin D3) 50 50 mcg PO DAILY 12/24/20 05/04/24 mcg (2,000 unit) capsule ondansetron HCl 4 mg tablet 4 mg PO Q8H PRN nausea and 01/10/24 05/04/24 vomiting #60 tabs prochlorperazine maleate 5 mg See Rx Instructions PO TID PRN 03/15/24 05/04/24 tablet headache and/or nausea #30 tabs Previous Rx's ?Medication ?Instructions ?Recorded ondansetron HCl 4 mg tablet 4 mg PO Q8H PRN nausea and 01/10/24 vomiting #60 tabs prochlorperazine maleate 5 mg See Rx Instructions PO TID PRN 03/15/24 tablet headache and/or nausea #30 tabs Allergies Allergy/AdvReac Type Severity Reaction Status Date / Time Sulfa (Sulfonamide Allergy Severe ORAL Verified 05/04/24 16:58 Antibiotics) BLISTERS AND SORES General Stated Complaint: Orthopedic DANDRE: 4 Review of Systems Narrative: see HPI Exam Const General: cooperative, healthy appearing, comfortable, no acute distress and well developed Skin General skin exam: no rashes or lesions noted Trauma: no lacerations or abrasions Neuro Motor: muscle tone normal throughout Sensory Exam: no sensory deficits noted Extrem Right lower extremity: normal to inspection and full ROM Left lower extremity: ankle Details: swelling Details: laterally and normal ROM; no tenderness, no warmth, no abrasions, no lacerations, no ecchymosis, no crepitus, no foreign bodies and no penetrating wound Course Vital Signs Vital signs: Vital Signs Temperature 36.4 C 05/04/24 16:56 Pulse 60 05/04/24 16:56 Respiratory Rate 18 05/04/24 16:56 Blood Pressure 127/82 05/04/24 16:56 Pulse Oximetry 98 05/04/24 16:56 Temperature 36.4 C 05/04/24 16:56 Temperature Source Oral 05/04/24 16:56 Pulse 60 05/04/24 16:56 Respiratory Rate 18 05/04/24 16:56 Blood Pressure 127/82 05/04/24 16:56 Blood Pressure Position Sitting 05/04/24 16:56 Pulse Oximetry 98 05/04/24 16:56 Oxygen Delivery Method Room Air 05/04/24 16:56 Oxygen Flow Rate 0 05/04/24 16:56 Pain Level 5 05/04/24 17:02 Medical Decision Making Imaging Data Radiologic Study: Radiologist's impression: Exam(s) XR ANKLE LT COMPLETE EXAM: XR ANKLE LT COMPLETE CLINICAL HISTORY: ankle pain after twisting injury TECHNIQUE: 2D digital imaging was performed. Three views. COMPARISON: No exams were available for comparison FINDINGS: Exam is limited by overlying sock. BONES: No acute fracture is present. No bony destructive lesion is seen. Small plantar calcaneal spur. JOINTS:The ankle mortise is normally aligned. SOFT TISSUE: Swelling. IMPRESSION: No evidence of fracture. Soft tissue swelling. Quality:SDOH Health Related Social Needs: No Data to Display PFSH All Active Problems (Updated 05/04/24 @ 18:20 by Dea Reynolds) Sprain of ankle, left (Acute) Numbness and tingling of left side of face (Acute) Migraine headache without aura (Acute) Migraines (Chronic) Facial pressure (Acute) Facial tingling sensation (Acute) IUD surveillance (Acute 02/18/15) Medical History Venomous sting 11/03/22 Per [facility]. -hb No significant past medical history Surgical History S/P laparoscopic appendectomy (~11/12/21) Repair, ACL (~2012) left Family History Mother No problems noted. 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[employer] Pets and animals: Yes Pets and animals: dog(s) Sexually active: Yes Do you think of yourself as: straight/heterosexual Current gender identity: female What is your relationship status?: How often do you talk on the phone with friends or family?: three or more times per week How often do you get together with friends or relatives?: twice per week How often do you attend taoist or congregation services?: decline to answer Do you belong to any clubs or organized social groups?: decline to answer Panel score (0-1 are the most socially isolated patients): 2 What type of physical activity do you participate in: walking, aerobic, bicycling and running Duration: 30-45 minutes/day Frequency: daily Imelda/Scientologist: No preference Special imelda needs: No Seatbelt use: always Helmet use: Yes Helmet use: sometimes Drive intox or ride w/intox full service vending driver: No Do you feel safe at home: Yes Do you feel safe in your relationship?: Yes Female Reproductive History Menstrual control method: progestin IUCD (Lot # [id number] Exp Date 01/2021) History History 2 Para 2 Hx # Term Pregnancies Multiple births Hx # Pregnancies Ectopic pregnancies AB induced Hx Number of Living Children AB spontaneous
--- NOTE | 2024-05-04 18:48 | NUR.NOTE ---
PT discharge information has been mailed the pt has left without paperwork.
== END 2024-05-04 18:27 | disposition home or self-care (01) ==
PROVIDERS: Emergency Provider Nurse Practitioner Family; PCP Nurse Practitioner Family
DX: S93.402A Sprain of unspecified ligament of left ankle, initial encounter (principal); W10.9XXA Fall (on) (from) unspecified stairs and steps, initial encounter; Y93.01 Activity, walking, marching and hiking
CPT/HCPCS: 99283; 73610

== ENCOUNTER 2024-06-23 00:19 | Outpatient (CLI) | payer OTHER, SELFPAY ==
--- NOTE | 2024-06-23 06:15 | DI.MAMMO_ITS ---
Exam(s) MAMMO SCREENING EXAM: MAMMO SCREENING CLINICAL HISTORY: screening,z12.39. TECHNIQUE: Bilateral full field digital CC and MLO mammographic images were obtained with 3D tomosyn thesis and utilizing computer aided detection (CAD). COMPARISON: Prior mammograms were reviewed. FINDINGS: There has been no significant change in the appearance and distribution of the fibroglandular tissue which is moderately dense. There are no CAD designations. There are no new spiculated masses nor malignant appearing microcalcification groups. There is no significant architectural distortion nor skin thickening-retraction. IMPRESSION: No radiographic evidence of malignancy. BI-RADS Category 1 - Negative Breast Density - Category C - Heterogeneously dense Breast density Category C or D implies that the patient has dense breast tissue. Dense breast tissue can make it harder to find cancer on a mammogram. Dense breast tissue is also associated with an incr eased risk of breast cancer. This information about the result of the mammogram report was provided to the patient to raise their awareness. Use this report when you speak with the patient about their risks for breast cancer, which includes their family history. At that time, you may recommend additional screening tests (Ultrasoun d or MRI) as these tests may add significant information. A negative radiographic report should not delay biopsy if a dominant or clinically suspicious mass is present. Up to ten percent of cancers are not identified on mammography. A negative report may reinforce clinical impression. Adenosis and dense breasts may obscure an underlying neoplasm. False positive reports average 6 to 10%. Patient will receive a letter notifying them of these results.
== END 2024-06-23 00:39 ==
LOC: DI 00:21
PROVIDERS: PCP Nurse Practitioner Family; Visit Provider Nurse Practitioner Family
DX: Z12.31 Encounter for screening mammogram for malignant neoplasm of breast (principal); R92.333 Mammographic heterogeneous density, bilateral breasts
CPT/HCPCS: 77063; 77067